=== PATIENT | female | born 1965 | race Caucasian/White ===

== ENCOUNTER 2016-09-06 14:57 | Day surgery (SDC) | payer BC ==
[~2016-09-06] VITALS: Ht 165.1 cm; Wt 107.0 kg
[2016-09-06 15:42] VITALS: Ht 165.1 cm; Wt 107.0 kg
[2016-09-06] MEDS ORDERED: HCTZ (16:00)
[2016-09-06] MEDS ORDERED: LOSARTAN (16:00)
[2016-09-06] MEDS ORDERED: FAMOTIDINE (16:00)
[2016-09-06] MEDS ORDERED: RANITIDINE (16:00)
[2016-09-06] MEDS ORDERED: MONTELUKAST (16:00)
[2016-09-06] MEDS ORDERED: ATORVASTATIN (16:00)
[2016-09-06] MEDS ORDERED: LIDOCAINE 2% (SDV) 5 ML INJ ONE (16:15)
[2016-09-06] MEDS ORDERED: PROPOFOL 80 ML ONE (16:15)
[2016-09-06 16:17] VITALS: BP 141/80; PULSE 81; RESP 18
[2016-09-06 17:17] VITALS: BP 178/89; PULSE 78; RESP 18
--- NOTE | 2016-09-06 17:45 | GILP ---
DATE OF PROCEDURE: 09/06/2016 NAME OF PROCEDURES: 1. Esophagogastroduodenoscopy and biopsy. 2. Colonoscopy. SURGEON: Love Gregory MD PREOPERATIVE DIAGNOSES: 1. Abdominal pain. 2. Chronic heartburn. 3. Screening colonoscopy. POSTOPERATIVE DIAGNOSES: 1. Gastroesophageal reflux disease. 2. Gastritis with erosions. 3. Gastric mucosal biopsies were taken for Helicobacter pylori test. 4. Colonoscopy all the way to the cecum. 5. Internal hemorrhoids. 6. No colon neoplasm was identified. INDICATION FOR THE PROCEDURE: Ms. Dale Jay is a 50-year-old female patient who had upper abdomin al pain and chronic heartburn, not responding to therapy. She also needed screening colonoscopy. The procedures and possible complications were well explained to the patient. The patient understoo d and consented to the procedure. DESCRIPTION OF PROCEDURE: Under the influence of anesthesia, the gastroscope was carefully introduc ed into the esophagus and under direct vision, it was advanced to the stomach, and through the pylor us into the duodenal bulb and descending duodenum. FINDINGS: ESOPHAGUS: The patient had gastroesophageal reflux disease. STOMACH: She had gastritis with erosions. Gastric mucosal biopsies were taken for H. pylori test. DUODENUM: Normal. The colonoscope was carefully introduced in the rectum and under direct vision, it was advanced all the way to the cecum. FINDINGS: The patient had internal hemorrhoids. No colon neoplasm was identified. She tolerated the procedures very well and there was no complication from the procedures. At the en d of the procedures, she was awake with stable vital signs and she was discharged home to the care o f her family. IMPRESSION: Please see postoperative diagnoses. PLAN: 1. Nexium 24 hours p.o. q.a.m. 2. Continue Zantac p.o. at bedtime. 3. Await histopathology report. 4. Next screening colonoscopy in 10 years. Dictated By: LOVE GREGORY MD GD/NTS Conf#: [id number] DID#: [id number] CC: LOVE GREGORY MD;*EndCC*
== END 2016-09-06 17:51 | disposition home or self-care (01) ==
LOC: GIL 14:57
PROVIDERS: ATTEND Internal Medicine Gastroenterology
DX: Z12.11 Encounter for screening for malignant neoplasm of colon (principal); K21.9 Gastro-esophageal reflux disease without esophagitis; K29.60 Other gastritis without bleeding; K64.8 Other hemorrhoids
CPT/HCPCS: 43239; 45378; 87081; Z7610